=== PATIENT | female | born 1995 | race Hispanic/Latino ===

== ENCOUNTER 2017-12-18 18:47 | Inpatient (IN) | payer MEDICAID ==
[~2017-12-18] VITALS: Ht 152.4 cm; Wt 71.2 kg
[2017-12-18] MEDS ORDERED: OXYTOCIN-LR 20 UNITS/1000 ML 1,000 ML IV SCH (19:45)
[2017-12-18 19:51] LABS: BILIRUBIN,URINE Negative (NEGATIVE); COLOR,URINE Yellow (YELLOW); GLUCOSE, URINE (UA) Negative (NEGATIVE); KETONES,URINE Negative (NEGATIVE); LEUKOCYTE ESTERASE ,URINE Trace (NEGATIVE); NITRATE,URINE Negative (NEGATIVE); OCCULT BLOOD,URINE Moderate (NEGATIVE); PH,URINE 6.5 (5.0-8.0); PROTEIN,URINE Negative (NEGATIVE)
[2017-12-18 19:52] LABS: APPEARANCE,URINE SLIGHTLY CLOUDY (CLEAR)
[2017-12-18 20:08] LABS: BACTERIA,URINE Few /HPF (None Seen); RBC,URINE 0-1 /HPF (0-1); SQUAMOUS EPITHELIAL CELL,UR Few /LPF (0-2)
[2017-12-18 21:07] LABS: HEMATOCRIT 33.8 % (36-48); MEAN CORPUSCULAR HEMOGLOBIN 30.9 pg (27.0-33.0); MEAN CORPUSCULAR HGB CONC 34.9 g/dL (32.0-36.0); MEAN CORPUSCULAR VOLUME 88.7 fL (80-100); PLATELET COUNT (AUTO) 236 K/uL (130-400); RED BLOOD CELL COUNT(AUTO) 3.81 MIL/uL (4.00-5.50); RED CELL DISTRIBUTION WIDTH 14.1 % (11.0-15.5); WHITE BLOOD COUNT (AUTO) 10.7 K/uL (4.8-10.8)
[2017-12-19] MEDS: LACTATED RINGERS 1000ML 1,000 ML IV PRN ×2 (00:35→03:00)
[2017-12-19] MEDS ORDERED: OXYTOCIN 10 USP UNITS/ML 20 UNIT in LACTATED RINGERS 1000ML 1,000 ML IV SCH ×2 (03:00→06:30)
[2017-12-19] MEDS ORDERED: OXYTOCIN 10 USP UNITS/ML ONE ×2 (05:27→12:54)
[2017-12-19] MEDS ORDERED: PROMETHAZINE HCL 25 MG/ML 1ML AMPULE IM SCH (11:15)
[2017-12-19] MEDS ORDERED: MEPERIDINE-PF 25 MG/ML SYG IVP PRN (11:15)
[2017-12-19] MEDS ORDERED: MEPERIDINE-PF 50 MG/ML SYG ONE (11:29)
[2017-12-19] MEDS ORDERED: LIDOCAINE HCL 1% 20 ML VIAL ONE (11:49)
[2017-12-19] MEDS ORDERED: LANOLIN 30GM OINTMENT TP PRN (12:30)
[2017-12-19] MEDS ORDERED: MEASLES/MUMPS/RUBELLA VACCINE, LIVE 0.5 ML/VIAL SQ PRN (12:30)
[2017-12-19] MEDS ORDERED: DIPH,PERTUSS(ACELL),TET VAC/PF 0.5 ML VIAL IM PRN (12:30)
[2017-12-19] MEDS ORDERED: WITCH HAZEL 1 PAD TP PRN (12:30)
[2017-12-19] MEDS ORDERED: BENZOCAINE/LANOLIN/ALOE VERA 60 ML AEROSOL TP PRN (12:30)
[2017-12-19] MEDS ORDERED: OXYTOCIN-LR 20 UNITS/1000 ML 1,000 ML IV SCH (12:30)
[2017-12-19] MEDS ORDERED: ACETAMINOPHEN 325 MG TAB PO PRN (12:30)
[2017-12-19] MEDS ORDERED: LACTATED RINGERS 1000ML 1,000 ML IV ONE (12:54)
[2017-12-19 15:55] VITALS: BP 109/62
[2017-12-19] MEDS: IBUPROFEN 600 MG TABLET PO PRN (17:21)
[2017-12-19] MEDS ORDERED: PNV1TABL17 PO (18:12)
[2017-12-19 19:43] VITALS: BP 104/55
[2017-12-19 23:18] VITALS: BP 100/65
[2017-12-20 02:54] VITALS: BP 100/57
[2017-12-20 05:41] LABS: HEMATOCRIT 29.3 % (36-48); MEAN CORPUSCULAR HEMOGLOBIN 30.7 pg (27.0-33.0); MEAN CORPUSCULAR HGB CONC 34.3 g/dL (32.0-36.0); MEAN CORPUSCULAR VOLUME 89.4 fL (80-100); PLATELET COUNT (AUTO) 214 K/uL (130-400); RED BLOOD CELL COUNT(AUTO) 3.28 MIL/uL (4.00-5.50); RED CELL DISTRIBUTION WIDTH 14.1 % (11.0-15.5); WHITE BLOOD COUNT (AUTO) 13.9 K/uL (4.8-10.8)
[2017-12-20 07:30] LABS: HEPATITIS Bs ANTIGEN SCREEN P Negative (Negative)
[2017-12-20 08:30] VITALS: BP 97/50
[2017-12-20] MEDS: IBUPROFEN 600 MG TABLET PO PRN (09:06)
[2017-12-20 12:11] VITALS: BP 95/55
== END 2017-12-20 14:20 | disposition home or self-care (01) | DRG 560 ==
LOC: LDH 18:47 → WSH 12-19 15:50
PROVIDERS: ADMIT Obstetrics & Gynecology; ATTEND Obstetrics & Gynecology
PROC: 3E033VJ Introduction of Other Hormone into Peripheral Vein, Percutaneous Approach (ICD-10-PCS; principal; 2017-12-19)
PROC: 10E0XZZ Delivery of Products of Conception, External Approach (ICD-10-PCS; 2017-12-19)
PROC: 0HQ9XZZ Repair Perineum Skin, External Approach (ICD-10-PCS; 2017-12-19)
PROC: 3E0234Z Introduction of Serum, Toxoid and Vaccine into Muscle, Percutaneous Approach (ICD-10-PCS; 2017-12-19)
PROC: 10907ZC Drainage of Amniotic Fluid, Therapeutic from Products of Conception, Via Natural or Artificial Opening (ICD-10-PCS; 2017-12-19)
DX: O69.81X0 Labor and delivery complicated by cord around neck, without compression, not applicable or unspecified (principal); D64.9 Anemia, unspecified; O70.0 First degree perineal laceration during delivery; Z37.0 Single live birth; Z3A.39 39 weeks gestation of pregnancy; O90.81 Anemia of the puerperium; Z23 Encounter for immunization
CPT/HCPCS: 36415; 81001; 85027; 86592; 86850; 86900; 86901; 87340; 90715; A4351; A4606; J2175; J2550; J2590; J7120

== ENCOUNTER 2019-05-18 23:57 | Emergency (ER) | payer MEDICAID, OTHER ==
[~2019-05-18 23:57] MED LIST: PNV1TABL17 PO
[2019-05-19 00:17] LABS: APPEARANCE,URINE Cloudy (CLEAR); BILIRUBIN,URINE Negative (NEGATIVE); COLOR,URINE Yellow (YELLOW); GLUCOSE, URINE (UA) Negative (NEGATIVE); KETONES,URINE Trace mg/dL (NEGATIVE); LEUKOCYTE ESTERASE ,URINE Moderate (NEGATIVE); NITRATE,URINE Negative (NEGATIVE); OCCULT BLOOD,URINE Trace (NEGATIVE); PH,URINE 6.5 (5.0-8.0); PROTEIN,URINE Negative (NEGATIVE)
[2019-05-19 00:20] LABS: HCG,QUAL RESULT NEGATIVE (NEGATIVE)
[2019-05-19 00:23] LABS: BASOPHILS % (AUTO) 0.6 % (0.0-5.0); EOSINOPHILS % (AUTO) 0.7 % (0.0-8.0); HEMATOCRIT 40.2 % (36-48); LYMPHOCYTES % (AUTO) 26.9 % (21.0-51.0); MEAN CORPUSCULAR HEMOGLOBIN 32.2 pg (27.0-33.0); MEAN CORPUSCULAR HGB CONC 33.7 g/dL (32.0-36.0); MEAN CORPUSCULAR VOLUME 95.5 fL (79-99); MONOCYTES % (AUTO) 7.4 % (3.0-13.0); NEUTROPHILS % (AUTO) 64.4 % (40.0-77.0); PLATELET COUNT (AUTO) 294 K/uL (130-400); RED BLOOD CELL COUNT(AUTO) 4.21 MIL/uL (4.00-5.50); RED CELL DISTRIBUTION WIDTH 12.4 % (11.0-15.5); WHITE BLOOD COUNT (AUTO) 12.3 K/uL (4.8-10.8)
[2019-05-19 00:43] LABS: CREATININE 0.8 mg/dL (0.5-1.5); POTASSIUM 3.7 mmol/L (3.5-5.1)
[2019-05-19 00:44] LABS: BACTERIA,URINE Few /HPF (None Seen); MUCUS,URINE Few LPF (None Seen)
[2019-05-19 00:47] LABS: ALBUMIN 4.1 g/dL (3.5-5.0); BILIRUBIN,TOTAL 0.3 mg/dL (0.2-1.0); TOTAL PROTEIN, SERUM 8.4 g/dL (6.0-8.3)
[2019-05-19] MEDS ORDERED: KETOROLAC TROMETHAMINE 30MG/ML ONE (01:06)
[2019-05-19] MEDS ORDERED: FAMOTIDINE/PF 20 MG/2 ML VIAL IV ONE (01:06)
[2019-05-19] MEDS ORDERED: HYOSCYAMINE SULFATE 0.125 MG TAB.SUBL SL ONE (01:06)
[2019-05-19] MEDS ORDERED: ACETAMINOPHEN 325 MG TAB ONE (02:26)
[2019-05-19] MEDS ORDERED: MAG HYDROX/AL HYDROX/SIMETH ES 30 ML SUSP UDCUP ONE (02:26)
[2019-05-19] MEDS ORDERED: LIDOCAINE HCL 2% VISCOUS 15 ML UDCUP ONE (02:26)
== END 2019-05-19 03:50 | disposition home or self-care (01) ==
LOC: EDH 23:57
DX: K80.20 Calculus of gallbladder without cholecystitis without obstruction (principal); K76.0 Fatty (change of) liver, not elsewhere classified
CPT/HCPCS: 36415; 76705; 80053; 81001; 81025; 83690; 85025; 96374; 96375; 99285; J1885; J3490

== ENCOUNTER 2020-06-22 12:30 | Inpatient (IN) | payer MEDICAID ==
[~2020-06-22] VITALS: Ht 157.5 cm; Wt 87.1 kg
[2020-06-25] MEDS ORDERED: CALDOLOR 800MG+NS 250ML 250 ML IV PRN (05:45)
[2020-06-25] MEDS ORDERED: LACTATED RINGERS 1000ML 1,000 ML IV SCH (05:45)
[2020-06-25] MEDS ORDERED: CEFAZOLIN SODIUM 1 GM VIAL IVP PRN (05:45)
[2020-06-25 06:17] LABS: HEMATOCRIT 37.3 % (36-48); MEAN CORPUSCULAR HEMOGLOBIN 31.6 pg (27.0-33.0); MEAN CORPUSCULAR HGB CONC 33.5 g/dL (32.0-36.0); MEAN CORPUSCULAR VOLUME 94.2 fL (79-99); RED BLOOD CELL COUNT(AUTO) 3.96 MIL/uL (4.00-5.50); RED CELL DISTRIBUTION WIDTH 14.3 % (11.0-15.5); WHITE BLOOD COUNT (AUTO) 8.4 K/uL (4.8-10.8)
[2020-06-25 06:47] VITALS: BP 121/69
[2020-06-25] MEDS ORDERED: OXYTOCIN-LR 20 UNITS/1000 ML 2,000 ML IV ONE (07:20)
[2020-06-25] MEDS ORDERED: FENTANYL CITRATE PF 50 MCG/1 ML 2ML VIAL ONE (07:29)
[2020-06-25] MEDS ORDERED: DURAMORPH PF1 MG/ML 10ML AMP IV ONE (07:29)
[2020-06-25] MEDS ORDERED: ONDANSETRON HCL 4 MG/2 ML VIAL ONE (07:48)
[2020-06-25] MEDS ORDERED: PHENYLEPHRINE HCL 10 MG/ML 1ML VIAL IV ONE (08:09)
[2020-06-25] MEDS ORDERED: MEPERIDINE-PF 25 MG/ML SYG ONE (08:28)
[2020-06-25] MEDS: IBUPROFEN 800 MG TAB PO SCH ×2 (08:45→16:45)
[2020-06-25] MEDS ORDERED: DIPHENHYDRAMINE HCL 25 MG CAPSULE PO PRN (08:45)
[2020-06-25] MEDS ORDERED: SODIUM CHLORIDE 0.9% 10 ML VIAL IVP PRN (08:45)
[2020-06-25] MEDS ORDERED: ACETAMINOPHEN EXTRA STRENGTH 500 MG TABLET PO PRN (08:45)
[2020-06-25] MEDS ORDERED: ACETAMINOPHEN-CODEINE 300/30MG TAB PO PRN (08:45)
[2020-06-25] MEDS ORDERED: LANOLIN 30GM OINTMENT TP PRN (08:45)
[2020-06-25] MEDS ORDERED: PROMETHAZINE HCL 25 MG/ML 1ML AMPULE IM PRN (08:45)
[2020-06-25] MEDS ORDERED: MEPERIDINE-PF 75 MG/ML SYG IM PRN (08:45)
[2020-06-25] MEDS: MEASLES/MUMPS/RUBELLA VACCINE, LIVE 0.5 ML/VIAL SQ SCH (08:45)
[2020-06-25] MEDS ORDERED: BISACODYL 10 MG SUPP.RECT RC PRN (08:45)
[2020-06-25] MEDS ORDERED: OXYTOCIN-LR 20 UNITS/1000 ML 1,000 ML IV PRN (08:45)
[2020-06-25] MEDS ORDERED: HYDROCODONE/ACETAMINOPHEN 5/325 MG TAB PO PRN (08:45)
[2020-06-25] MEDS: DOCUSATE SODIUM 100 MG CAP PO SCH ×2 (09:00→20:47)
[2020-06-25] MEDS ORDERED: NALOXONE HCL 0.4 MG/1 ML ML IVP PRN ×3 (09:15)
[2020-06-25] MEDS ORDERED: DiphenhydrAMINE HCL 50 MG/ML VIAL IVP PRN (09:15)
[2020-06-25] MEDS ORDERED: ONDANSETRON HCL 4 MG/2 ML VIAL IVP PRN (09:15)
[2020-06-25 10:35] VITALS: BP 118/56
[2020-06-25] MEDS: DEXTROSE 5 %-0.45 % NACL 1,000 ML IV PRN ×2 (10:40→18:31)
[2020-06-25 16:54] VITALS: BP 115/69
[2020-06-25] MEDS: DIPH,PERTUSS(ACELL),TET VAC/PF 0.5 ML VIAL IM SCH (18:31)
[2020-06-25] MEDS: CALDOLOR 800MG+NS 250ML 250 ML IV SCH (18:31)
[2020-06-25 19:31] VITALS: BP 107/48
[2020-06-25 23:44] VITALS: BP 117/65
[2020-06-26] MEDS: CALDOLOR 800MG+NS 250ML 250 ML IV SCH (02:05)
[2020-06-26] MEDS: DEXTROSE 5 %-0.45 % NACL 1,000 ML IV PRN (03:28)
[2020-06-26 03:42] VITALS: BP 103/53
--- NOTE | 2020-06-26 06:20 | NUR ---
output Lacy Catheter discontinued. Tolerated well
[2020-06-26 06:29] LABS: HEMATOCRIT 29.5 % (36-48); MEAN CORPUSCULAR HEMOGLOBIN 32.2 pg (27.0-33.0); MEAN CORPUSCULAR HGB CONC 33.6 g/dL (32.0-36.0); MEAN CORPUSCULAR VOLUME 96.1 fL (79-99); RED BLOOD CELL COUNT(AUTO) 3.07 MIL/uL (4.00-5.50); RED CELL DISTRIBUTION WIDTH 14.5 % (11.0-15.5); WHITE BLOOD COUNT (AUTO) 9.9 K/uL (4.8-10.8)
[2020-06-26 07:19] LABS: HEPATITIS Bs ANTIGEN SCREEN P Negative (Negative)
[2020-06-26 07:30] VITALS: BP 109/70
--- NOTE | 2020-06-26 07:30 | NUR ---
PATIENT ASSESSED AND SCDs REMOVED AND INCISION IS OPEN TO AIR WITH DERMABOND AND NO DRAINAGE, REDNESS OR EDEMA NOTED. PIV IS INFUSING WELL TO RIGHT HAND AND PATIENT DENIES PAIN. ASSISTED PATIENT TO CHAIR AND TOLERATED ACTIVITY WELL AND AFTER ASSESSMENT WAS ASSISTED TO BATHROOM AND VOIDED 750CC WITH LIGHT TINGED OF BLOOD. TOLERATED ACTIVITY WELL [id number] DIZZINESS.
[2020-06-26] MEDS: DOCUSATE SODIUM 100 MG CAP PO SCH ×2 (08:28→21:38)
[2020-06-26] MEDS: SIMETHICONE 80 MG TAB.CHEW PO PRN ×2 (08:28→21:38)
--- NOTE | 2020-06-26 08:40 | NUR ---
MORNING MEDICATIONS ISSUED ABND PATIENT VERBALIZED NOT TOLERATING PILLS SO PILL CUTTER WAS ISSUED AND MOTRIN CUT FOR ADMIINISTRATION. PATIENT INSTRUCTED TO ASK FOR ELIXIR MEDICATIONS WHEN SCRIPT IS FILLED AND VERBALIZED UNDERSTANDING.
[2020-06-26] MEDS: IBUPROFEN 800 MG TAB PO SCH ×3 (08:45→21:52)
[2020-06-26] MEDS: DIPH,PERTUSS(ACELL),TET VAC/PF 0.5 ML VIAL IM SCH (08:45)
[2020-06-26] MEDS: MEASLES/MUMPS/RUBELLA VACCINE, LIVE 0.5 ML/VIAL SQ SCH (08:45)
[2020-06-26 12:00] VITALS: BP 97/60
[2020-06-26 16:00] VITALS: BP 119/71
[2020-06-26 20:25] VITALS: BP 131/73
[2020-06-26 23:45] VITALS: BP 116/68
[2020-06-27 04:03] VITALS: BP 119/65
[2020-06-27 07:46] VITALS: BP 124/71
[2020-06-27] MEDS: SIMETHICONE 80 MG TAB.CHEW PO PRN (08:41)
[2020-06-27] MEDS: DOCUSATE SODIUM 100 MG CAP PO SCH (08:41)
[2020-06-27] MEDS: IBUPROFEN 800 MG TAB PO SCH (08:43)
[2020-06-27] MEDS: DIPH,PERTUSS(ACELL),TET VAC/PF 0.5 ML VIAL IM SCH (08:45)
[2020-06-27] MEDS: MEASLES/MUMPS/RUBELLA VACCINE, LIVE 0.5 ML/VIAL SQ SCH (08:45)
[2020-06-27 10:39] VITALS: BP 119/66
--- NOTE | 2020-06-27 11:55 | NUR ---
DISCHARGE INSTRUCTIONS GIVEN AND SCRIPT FOR PAIN MANAGEMENT AT HOME REINFORCED. VERBALIZED UNDERSTANDING INSTRUCTIONS GIVEN.
--- NOTE | 2020-06-27 12:05 | NUR ---
PATIENT WAS TAKEN VIA W/C CARRYING BABY IN [place] AND WAS DISCHARGED TO HER SPOUSE IN STABLE CONDITION. PATIENT STABLE.
== END 2020-06-27 12:05 | disposition home or self-care (01) | DRG 540 ==
LOC: LDH 06-25 05:25 → WSH 06-25 09:40
PROVIDERS: ADMIT Obstetrics & Gynecology; ATTEND Obstetrics & Gynecology
PROC: 3E0234Z Introduction of Serum, Toxoid and Vaccine into Muscle, Percutaneous Approach (ICD-10-PCS; 2020-06-25)
PROC: 10D00Z1 Extraction of Products of Conception, Low, Open Approach (ICD-10-PCS; principal; 2020-06-25 07:30)
DX: O36.63X0 Maternal care for excessive fetal growth, third trimester, not applicable or unspecified (principal); Z20.828 Contact with and (suspected) exposure to other viral communicable diseases; O69.81X0 Labor and delivery complicated by cord around neck, without compression, not applicable or unspecified; O32.2XX0 Maternal care for transverse and oblique lie, not applicable or unspecified; Z3A.39 39 weeks gestation of pregnancy; Z37.0 Single live birth; Z23 Encounter for immunization
CPT/HCPCS: 36415; 59510; 85027; 86592; 86850; 86900; 86901; 87340; 90715; A4344; G0378; J0690; J1741; J2175; J2274; J2370; J2405; J2590; J3010; J7120; U0003